=== PATIENT | male | born 1950 | race Caucasian/White ===

== ENCOUNTER 2018-07-31 14:21 | Outpatient (CLI) | payer MEDICARE ==
[~2018-07-31] VITALS: Ht 175.3 cm; Wt 84.8 kg
[2018-07-31 14:31] VITALS: BP 123/75
[2018-07-31 15:22] LABS: CLARITY,URINE CLEAR; COLOR,URINE YELLOW; GLUCOSE, URINE (UA) NEGATIVE (NEGATIVE); KETONES,URINE 1+ (NEGATIVE); LEUKOCYTE ESTERASE ,URINE 1+ (NEGATIVE); NITRITE,URINE NEGATIVE (NEGATIVE); PH,URINE 5 (5-9); PROTEIN,URINE 2+ (NEGATIVE); UROBILINOGEN,URINE 1 MG/DL (NORMAL)
[2018-07-31 15:34] LABS: BACTERIA,URINE TRACE /HPF; HYALINE CASTS, URINE >50 /LPF
[2018-07-31 15:40] LABS: BILIRUBIN,URINE 1+ (NEGATIVE)
[2018-07-31 15:45] LABS: CREATININE SERUM 1.64 MG/DL (0.60-1.30); POTASSIUM 4.1 MMOL/L (3.6-5.0)
[2018-07-31 15:46] LABS: CALCIUM 9.6 MG/DL (8.5-10.1)
[2018-08-01] MEDS ORDERED: PANT40TA3 PO (09:23)
[2018-08-01] MEDS ORDERED: DICY20TA10 PO (09:23)
[2018-08-01] MEDS ORDERED: DIGO250T PO (09:23)
[2018-08-01] MEDS ORDERED: FENO145T37 PO (09:23)
[2018-08-01] MEDS ORDERED: SEMA1PEN SQ (09:23)
[2018-08-01] MEDS ORDERED: ATOR80TA76 PO (09:23)
[2018-08-01] MEDS ORDERED: RAMI10CA69 PO (09:23)
[2018-08-01] MEDS ORDERED: GLIP5TAB13 PO (09:23)
[2018-08-01] MEDS ORDERED: METF500T8 PO (09:23)
[2018-08-01] MEDS ORDERED: DONE10TA12 PO (09:23)
[2018-08-01] MEDS ORDERED: CLOP75TA28 PO (09:23)
[2018-08-01] MEDS ORDERED: SERT100T8 PO (09:23)
[2018-08-01] MEDS ORDERED: FURO40TA4 PO (09:23)
[2018-08-01] MEDS ORDERED: SPIR25TA5 PO (09:23)
[2018-08-01] MEDS ORDERED: CARV12.53 PO (09:23)
--- NOTE | 2018-08-01 09:56 | Physician Query-Final Dx ---
DORETHA CARLSON 08/01/18 0956: Clinic Account Progress/Dx Physician Query: Please give a diagnosis for the screening PSA test thank you Date of Service Jul 31, 2018 at 14:21 JOSIE TURCIOS MD 08/02/18 1454: Clinic Account Progress/Dx Physician Query: Please give diagnosis DIAGNOSIS: Diagnosis BPH DORETHA CARLSON Aug 01, 2018 09:56 JOSIE TURCIOS MD Aug 02, 2018 14:54
[2018-08-01] MEDS ORDERED: CARV25TA PO (12:17)
== END 2018-07-31 15:10 | disposition home or self-care (01) ==
LOC: PREOP 14:21
PROVIDERS: ATTEND Urology
DX: Z01.812 Encounter for preprocedural laboratory examination (principal); Z11.2 Encounter for screening for other bacterial diseases; N41.9 Inflammatory disease of prostate, unspecified; R31.9 Hematuria, unspecified; N40.0 Benign prostatic hyperplasia without lower urinary tract symptoms
CPT/HCPCS: 36415; 80048; 81000; 84153; 84403; 87081; 87088; 88112

== ENCOUNTER 2018-08-07 06:17 | Day surgery (SDC) | payer MEDICARE ==
[~2018-08-07] VITALS: Ht 175.3 cm; Wt 80.9 kg
[~2018-08-07 06:17] MED LIST: ATOR80TA76 PO; CARV12.53 PO; CARV25TA PO; CLOP75TA28 PO; DICY20TA10 PO; DIGO250T PO; DONE10TA12 PO; FENO145T37 PO; FURO40TA4 PO; GLIP5TAB13 PO; METF500T8 PO; PANT40TA3 PO; RAMI10CA69 PO; SEMA1PEN SQ; SERT100T8 PO; SPIR25TA5 PO
[2018-08-07] MEDS ORDERED: LACTATED RINGERS 1,000 ML IV PRN (06:20)
[2018-08-07] MEDS ORDERED: cefTRIAXone FOR IV USE 1,000 MG in WATER (STERILE) FOR INJECTION 10 ML IV ONE (06:30)
[2018-08-07 06:58] VITALS: BP 118/76
[2018-08-07] MEDS ORDERED: proPOfol 200 MG/20 ML (DIPRIVAN) VIAL IV ONE (06:59)
[2018-08-07] MEDS ORDERED: MIDAZOLAM 2 MG/2 ML (VERSED) VIAL ONE (06:59)
[2018-08-07] MEDS ORDERED: SEVOFLURANE (ULTANE) 15 ML INHAL SOLN ONE (06:59)
[2018-08-07] MEDS ORDERED: LIDOCAINE PF 2% 5 ML (XYLOCAINE) VIAL ONE (06:59)
[2018-08-07] MEDS ORDERED: fentaNYL INJECTION 100 MCG/2 ML AMP ONE (07:00)
[2018-08-07] MEDS ORDERED: FAMOTIDINE 20MG/2ML IV (PEPCID) IV ONE (07:00)
[2018-08-07] MEDS ORDERED: FAMOTIDINE 20MG/2ML IV (PEPCID) ONE (07:07)
--- NOTE | 2018-08-07 07:07 | Progress Note-Post Operative ---
Post-Operative Progess Note Surgeon (s)/Improvement Spec (s) Surgeon JOSIE TURCIOS MD Improvement Spec: NONE Pre-Operative Diagnosis HEMATURIA AND PROSTATITIS Post-Operative Diagnosis SAME Procedure & Operative Findings Date of Procedure 08/07/18 Procedure Performed/Findings CYSTOSCOPY Anesthesia Type LOCAL Estimated Blood Loss Estimated blood loss (mL): NONE Specimens/Packing Specimens Removed NONE Packing: NONE JOSIE TURCIOS MD Aug 07, 2018 07:07
--- NOTE | 2018-08-07 07:07 | Progress Note-Pre Operative ---
Pre-Operative Progress Note H&P Reviewed The H&P was reviewed, patient examined and no changes noted. Date Seen by Provider: Aug 07, 2018 Time Seen by Provider: 07:06 Date H&P Reviewed: Aug 07, 2018 Time H&P Reviewed: 07:06 Pre-Operative Diagnosis: HEMATURIA AND PROSTATITIS JOSIE TURCIOS MD Aug 07, 2018 07:07
[2018-08-07] MEDS ORDERED: WATER (STERILE) FOR INJECTION 10 ML ONE (07:08)
[2018-08-07] MEDS ORDERED: cefTRIAXone 1,000 MG IV (ROCEPHIN) VIAL ONE (07:08)
[2018-08-07] MEDS ORDERED: LIDOCAINE UROJET 2% GEL 10 ML PKG ONE (07:08)
--- NOTE | 2018-08-07 07:09 | Discharge Inst-Urology ---
Discharge Inst-Urology Discharge Medications New, Converted, or Re-newed RX: RX on Chart Patient Instructions/Follow Up Plan Please make appointment to been seen in office in 2 weeks. Increase oral fluids for 48 hours and then as needed. Diet and Activity as tolerated. If questions or concerns contact your physician Or seek help at emergency department. JOSIE TURCIOS MD Aug 07, 2018 07:09
[2018-08-07] MEDS ORDERED: PHEN-640 PO (07:22)
[2018-08-07] MEDS ORDERED: NITR-65 PO (07:22)
--- NOTE | 2018-08-07 08:00 | OPERATIVE REPORT ---
DATE OF SERVICE: 08/07/2018 PREOPERATIVE DIAGNOSES: 1. Hematuria. 2. History of prostatitis. POSTOPERATIVE DIAGNOSES: 1. Hematuria. 2. History of prostatitis. OPERATION PERFORMED: Cystoscopy. SURGEON: Carlos Turcios MD ANESTHESIA: General and local. COMPLICATIONS: None. DESCRIPTION OF PROCEDURE: Under satisfactory general anesthesia, the patient in supine position, genitalia were prepped and draped in the usual sterile fashion. Urethra was infiltrated with 2% lidocaine jelly and a penile clamp was applied, this was then removed. The flexible cystoscope was introduced under vision. The anterior urethra was normal. The prostate was nonobstructing. Bladder neck was open. Bladder revealed 2 to 3+ trabeculations. No cystitis, carcinoma in situ or bladder tumor. No foreign body or stones. Ureteric orifices normal in shape, size and configuration with clear efflux. The cystoscopy was confirmed in antegrade fashion and the cystoscope was removed. The patient tolerated the procedure and anesthesia well and was sent to recovery room in stable condition. PLAN: We will see him back in 2 weeks. We will check his rectal exam. 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 This was fully explained to the patient preoperatively and to the postoperatively. Job ID: [id number] DocumentID: [id number] Dictated Date: 08/07/2018 07:38:23 Medical Staff Services Coordinator Date: 08/07/2018 07:59:22 Dictated By: CARLOS TURCIOS MD
[2018-08-07 08:30] VITALS: BP 148/87
[2018-08-07 09:00] VITALS: BP 143/89
[2018-08-07 09:30] VITALS: BP 130/86
--- NOTE | 2018-08-07 14:33 | Anesthesia-General Post-Op ---
General Patient Condition Mental Status/LOC: Same as Preop Cardiovascular: Satisfactory Nausea/Vomiting: Absent Respiratory: Satisfactory Pain: Controlled Complications: Absent Post Op Complications Complications None Follow Up Care/Instructions Patient Instructions None needed. Anesthesia/Patient Condition Patient Condition Patient was seen after the procedure and he was doing well, no complaints, stable vital signs, no apparent adverse anesthesia problems. HATTIE OLIVER DO Aug 07, 2018 14:33
== END 2018-08-07 09:32 | disposition home or self-care (01) ==
LOC: SDC 06:17
PROVIDERS: ATTEND Urology
DX: R31.0 Gross hematuria (principal); Z87.448 Personal history of other diseases of urinary system; K21.9 Gastro-esophageal reflux disease without esophagitis; F32.9 Major depressive disorder, single episode, unspecified; N40.0 Benign prostatic hyperplasia without lower urinary tract symptoms; I25.10 Atherosclerotic heart disease of native coronary artery without angina pectoris; E11.9 Type 2 diabetes mellitus without complications; N18.9 Chronic kidney disease, unspecified; C34.92 Malignant neoplasm of unspecified part of left bronchus or lung; I12.9 Hypertensive chronic kidney disease with stage 1 through stage 4 chronic kidney disease, or unspecified chronic kidney disease; J44.9 Chronic obstructive pulmonary disease, unspecified; Z79.899 Other long term (current) drug therapy; Z79.84 Long term (current) use of oral hypoglycemic drugs; Z95.5 Presence of coronary angioplasty implant and graft; Z95.810 Presence of automatic (implantable) cardiac defibrillator
CPT/HCPCS: 82962

== ENCOUNTER → 2018-12-13 | Outpatient (CLI) | payer MEDICARE ==
[~2018-12-13] MED LIST changes: +NITR-65 PO; +PHEN-640 PO
== END ==
LOC: CARD 09:53
PROVIDERS: ATTEND Internal Medicine Interventional Cardiology
DX: I50.22 Chronic systolic (congestive) heart failure (principal); I25.10 Atherosclerotic heart disease of native coronary artery without angina pectoris; Z95.810 Presence of automatic (implantable) cardiac defibrillator
CPT/HCPCS: 93306

== ENCOUNTER 2018-12-26 07:17 | Day surgery (SDC) | payer MEDICARE ==
[2018-12-26] VITALS (11 sets, daily range): BP systolic 155–192; BP diastolic 92–113
[~2018-12-26] VITALS: Ht 175.3 cm; Wt 80.9 kg
[~2018-12-26 07:17] MED LIST changes: +ALLO300T2 PO; +AMLO5TAB9 PO; +ASPI-999 PO; +INSU100I23 SQ
--- OUTSIDE RECORDS SUMMARY | 2018-12-26 07:21 | XMS REPORT | Continuity of Care Document ---
Author Organization Unknown Address Unknown Allergies Active Description Code Type Severity Reaction Onset Reported/Identified Relationship to Patient Clinical Status Yes acetaminophen [id number] Drug Allergy Unknown N/A 12/25/2018 Yes hydromorphone [id number] Drug Allergy Unknown N/A 12/25/2018 Yes morphine [id number] Drug Allergy Unknown N/A 12/25/2018 Yes propoxyphene [id number] Drug Allergy Unknown N/A 12/25/2018 Yes Sulfa (Sulfonamide Antibiotics) [id number] Drug Allergy Unknown N/A 12/25/2018 Medications There is no data. Problems Date Dx Coded Attending Type Code Diagnosis Diagnosed By 07/31/2018 JOSIE TURCIOS MD Ot N40.0 BENIGN PROSTATIC HYPERPLASIA WITHOUT LOW 07/31/2018 JOSIE TURCIOS MD Ot N41.9 INFLAMMATORY DISEASE OF PROSTATE, UNSPEC 07/31/2018 JOSIE TURCIOS MD Ot R31.9 HEMATURIA, UNSPECIFIED 07/31/2018 JOSIE TURCOIS MD Ot Z01.812 ENCOUNTER FOR PREPROCEDURAL LABORATORY E 07/31/2018 JOSIE TURCIOS MD Ot Z11.2 ENCOUNTER FOR SCREENING FOR OTHER BACTER 07/31/2018 JOSIE TURCIOS MD Ot N40.0 BENIGN PROSTATIC HYPERPLASIA WITHOUT LOW 07/31/2018 JOSIE TURCIOS MD Ot N40.0 BENIGN PROSTATIC HYPERPLASIA WITHOUT LOW 08/05/2018 JOSIE TURCIOS MD Ot N40.0 BENIGN PROSTATIC HYPERPLASIA WITHOUT LOW 08/05/2018 JOSIE TURCIOS MD Ot N41.9 INFLAMMATORY DISEASE OF PROSTATE, UNSPEC 08/05/2018 JOSIE TURCIOS MD Ot R31.9 HEMATURIA, UNSPECIFIED 08/05/2018 JOSIE TURCIOS MD Ot Z01.812 ENCOUNTER FOR PREPROCEDURAL LABORATORY E 08/05/2018 JOSIE TURCIOS MD Ot Z11.2 ENCOUNTER FOR SCREENING FOR OTHER BACTER 08/07/2018 JOSIE TURCIOS MD, Ot C34.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 08/07/2018 JOSIE TURCIOS MD, Ot E11.9 TYPE 2 DIABETES MELLITUS WITHOUT COMPLIC 08/07/2018 JOSIE TURCIOS MD, Ot F32.9 MAJOR DEPRESSIVE DISORDER, SINGLE EPISOD 08/07/2018 JOSIE TURCIOS MD, Ot I12.9 HYPERTENSIVE CHRONIC KIDNEY DISEASE W ST 08/07/2018 JOSIE TURCIOS MD, Ot I25.10 ATHSCL HEART DISEASE OF [place] CORONARY 08/07/2018 JOSIE TURCIOS MD, Ot J44.9 CHRONIC OBSTRUCTIVE PULMONARY DISEASE, U 08/07/2018 JOSIE TURCIOS MD, Ot K21.9 GASTRO-ESOPHAGEAL REFLUX DISEASE WITHOUT 08/07/2018 JOSIE TURCIOS MD, Ot N18.9 CHRONIC KIDNEY DISEASE, UNSPECIFIED 08/07/2018 JOSIE TURCIOS MD, Ot N40.0 BENIGN PROSTATIC HYPERPLASIA WITHOUT LOW 08/07/2018 JOSIE TURCIOS MD, Ot R31.0 GROSS HEMATURIA 08/07/2018 JOSIE TURCIOS MD, Ot Z79.84 ASSOCIATE [employer]LYT[employer] (CURRENT) USE OF ORAL HYPOGLYC 08/07/2018 JOSIE TURCIOS MD, Ot Z79.899 OTHER ASSOCIATE [employer]NALYT[employer] (CURRENT) DRUG THERAPY 08/07/2018 JOSIE TURCIOS MD, Ot Z87.448 PERSONAL HISTORY OF OTHER DISEASES OF UR 08/07/2018 JOSIE TURCIOS MD, Ot Z95.5 PRESENCE OF CORONARY ANGIOPLASTY IMPLANT 08/07/2018 JOSIE TURCIOS MD, Ot Z95.810 PRESENCE OF AUTOMATIC (IMPLANTABLE) CARD 08/08/2018 JOSIE TURCIOS MD, Ot C34.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 08/08/2018 JOSIE TURCIOS MD, Ot E11.9 TYPE 2 DIABETES MELLITUS WITHOUT COMPLIC 08/08/2018 JOSIE TURCIOS MD, Ot F32.9 MAJOR DEPRESSIVE DISORDER, SINGLE EPISOD 08/08/2018 JOSIE TURCIOS MD, Ot I12.9 HYPERTENSIVE CHRONIC KIDNEY DISEASE W ST 08/08/2018 JOSIE TURCIOS MD, Ot I25.10 ATHSCL HEART DISEASE OF [place] CORONARY 08/08/2018 JOSIE TURCIOS MD, Ot J44.9 CHRONIC OBSTRUCTIVE PULMONARY DISEASE, U 08/08/2018 JOSIE TURCIOS MD, Ot K21.9 GASTRO-ESOPHAGEAL REFLUX DISEASE WITHOUT 08/08/2018 JOSIE TURCIOS MD, Ot N18.9 CHRONIC KIDNEY DISEASE, UNSPECIFIED 08/08/2018 JOSIE TURCIOS MD, Ot N40.0 BENIGN PROSTATIC HYPERPLASIA WITHOUT LOW 08/08/2018 JOSIE TURCIOS MD, Ot R31.0 GROSS HEMATURIA 08/08/2018 JOSIE TURCIOS MD, Ot Z79.84 FDC (CURRENT) USE OF ORAL HYPOGLYC 08/08/2018 JOSIE TURCIOS MD, Ot Z79.899 OTHER FDC (CURRENT) DRUG THERAPY 08/08/2018 JOSIE TURCIOS MD, Ot Z87.448 PERSONAL HISTORY OF OTHER DISEASES OF UR 08/08/2018 JOSIE TURCIOS MD, Ot Z95.5 PRESENCE OF CORONARY ANGIOPLASTY IMPLANT 08/08/2018 JOSIE TURCIOS MD, Ot Z95.810 PRESENCE OF AUTOMATIC (IMPLANTABLE) CARD 12/18/2018 Kailash TINSLEY MD Ot I25.10 ATHSCL HEART DISEASE OF [place] CORONARY 12/18/2018 Kailash TINSLEY MD Ot I50.22 CHRONIC SYSTOLIC (CONGESTIVE) HEART FAIL 12/18/2018 Kailash TINSLEY MD Ot Z95.810 PRESENCE OF AUTOMATIC (IMPLANTABLE) CARD 12/18/2018 Kailash TINSLEY MD Ot I25.10 ATHSCL HEART DISEASE OF [place] CORONARY 12/18/2018 Kailash TINSLEY MD Ot I50.22 CHRONIC SYSTOLIC (CONGESTIVE) HEART FAIL 12/18/2018 Kailash TINSLEY MD Ot Z95.810 PRESENCE OF AUTOMATIC (IMPLANTABLE) CARD 12/25/2018 KATHIE BRODY MD Ot Z01.818 ENCOUNTER FOR OTHER PREPROCEDURAL EXAMIN 12/26/2018 KATHIE BRODY MD Ot Z01.818 ENCOUNTER FOR OTHER PREPROCEDURAL EXAMIN Procedures There is no data. Results Test Result Range Complete urinalysis with reflex to culture - 07/31/18 15:00 Urine color determination YELLOW NRG Urine clarity determination CLEAR NRG Urine pH measurement by test strip 5 5-9 Specific gravity of urine by test strip 1.025 1.016-1.022 Urine protein assay by test strip, semi-quantitative 2+ NEGATIVE Urine glucose detection by automated test strip NEGATIVE NEGATIVE Erythrocytes detection in urine sediment by light microscopy NEGATIVE NEGATIVE Urine ketones detection by automated test strip 1+ NEGATIVE Urine nitrite detection by test strip NEGATIVE NEGATIVE Urine total bilirubin detection by test strip 1+ NEGATIVE Urine urobilinogen measurement by automated test strip (mass/volume) 1 mg/dL NORMAL Urine leukocyte esterase detection by dipstick 1+ NEGATIVE Automated urine sediment erythrocyte count by microscopy (number/high power field) [HPF] NRG Automated urine sediment leukocyte count by microscopy (number/high power field) [HPF] NRG Bacteria detection in urine sediment by light microscopy TRACE NRG Crystals detection in urine sediment by light microscopy NONE NRG Casts detection in urine sediment by light microscopy PRESENT NRG Mucus detection in urine sediment by light microscopy NEGATIVE NRG Complete urinalysis with reflex to culture YES NRG Hyaline casts detection in urine sediment by light microscopy >50 NRG Whole blood basic metabolic panel - 07/31/18 15:00 Serum or plasma sodium measurement (moles/volume) 142 mmol/L 135-145 Serum or plasma potassium measurement (moles/volume) 4.1 mmol/L 3.6-5.0 Serum or plasma chloride measurement (moles/volume) 108 mmol/L 98-107 Carbon dioxide 23 mmol/L 21-32 Serum or plasma anion gap determination (moles/volume) 11 mmol/L 5-14 Serum or plasma urea nitrogen measurement (mass/volume) 29 mg/dL 7-18 Serum or plasma creatinine measurement (mass/volume) 1.64 mg/dL 0.60-1.30 Serum or plasma urea nitrogen/creatinine mass ratio 18 NRG Serum or plasma creatinine measurement with calculation of estimated glomerular filtration rate 42 NRG Serum or plasma glucose measurement (mass/volume) 192 mg/dL 70-105 Serum or plasma calcium measurement (mass/volume) 9.6 mg/dL 8.5-10.1 Bacterial urine culture - 07/31/18 15:00 Bacterial urine culture NG NRG Serum or plasma testosterone measurement (mass/volume) - 07/31/18 15:00 Testosterone [mass or moles/volume] in serum or plasma 224.62 % 220.91-715.81 Semen free prostate specific antigen (PSA) measurement (units/volume) - 07/31/18 15:00 Prostate specific ag [mass/volume] in serum or plasma 0.88 % 0.00-4.00 Methicillin resistant Staphylococcus aureus (MRSA) screening culture - 07/31/18 15:00 Methicillin resistant Staphylococcus aureus (MRSA) screening culture NEG NRG Capillary blood glucose measurement by glucometer (mass/volume) - 08/07/18 06:30 Capillary blood glucose measurement by glucometer (mass/volume) 167 mg/dL 70-110 Encounters ACCT No. Visit Date/Time Discharge Status Pt. Type Provider Facility Loc./Unit Complaint [id number] 12/25/2018 10:03:00 12/25/2018 10:39:00 DIS Outpatient KATHIE BRODY MD [facility] PREOP COLONOSCOPY [id number] 12/13/2018 09:53:00 12/13/2018 23:59:59 CLS Outpatient Kailash TINSLEY MD [facility] CARD ICD,CAD,CHF [id number] 10/16/2018 11:35:00 10/16/2018 23:59:59 CLS Preadmit Kailash TINSLEY MD [facility] CARD ICD,CAD,CHRONIC SYSTOLIC CHF [id number] 08/07/2018 06:17:00 08/07/2018 09:32:00 DIS Outpatient JOSIE TURCIOS MD [facility] SDC HEMATURIA [id number] 07/31/2018 14:21:00 07/31/2018 15:10:00 DIS Outpatient JOSIE TURCIOS MD [facility] PREOP HEMATURIA [id number] 12/26/2018 09:15:00 PEN Preadmit KATHIE BRODY MD [facility] ENDO RECTAL BLEEDING
[2018-12-26] MEDS ORDERED: NS IV 500 ML 500 ML ONE (07:31)
[2018-12-26] MEDS ORDERED: NS IV 500 ML 500 ML IV PRN (07:48)
[2018-12-26] MEDS ORDERED: MIDAZOLAM 2 MG/2 ML (VERSED) VIAL IVP ONE (08:00)
[2018-12-26] MEDS ORDERED: fentaNYL INJECTION 100 MCG/2 ML AMP IVP ONE (08:00)
--- NOTE | 2018-12-26 08:02 | Progress Note-Pre Operative ---
Pre-Operative Progress Note H&P Reviewed The H&P was reviewed, patient examined and no changes noted. Date Seen by Provider: Dec 26, 2018 Time Seen by Provider: 08:01 Date H&P Reviewed: Dec 26, 2018 Time H&P Reviewed: 08:01 Pre-Operative Diagnosis: rectal thickening KATHIE BRODY MD Dec 26, 2018 08:02
[2018-12-26] MEDS ORDERED: fentaNYL INJECTION 100 MCG/2 ML AMP ONE (08:15)
[2018-12-26] MEDS ORDERED: MIDAZOLAM 2 MG/2 ML (VERSED) VIAL ONE ×2 (08:16)
--- NOTE | 2018-12-26 08:37 | Endoscopy Procedure Report ---
Colonoscopy Procedure Performed: Colonoscopy Pre-Operative Diagnosis: brbpr Post-Operative Diagnosis: no findings Tin Assorter: None. Indications for Procedure: brbor Procedure Details: Informed consent was obtained, the risks, benefits and alternatives to the procedure were explained to the patient. The Doyle Romo, a 68 yr old male, was brought to to surgery area, sedated with 4 mg of Versed and 100 ug of fetnanyl. He was placed in the left lateral decubitus position. Under direct visualization the scope was passed into the remainder of his colon.depsite insufflation with air mucose was difficult to visualize and only able to look forward wit no distinct mass or lesion to biopsy Findings: Ascending Colon: n/a Transverse Colon: n/a Descending/Sigmoid: n/a Rectum: as above Estimated Blood Loss: 0mL Specimens: none Complications: None; patient tolerated the procedure well. Final Diagnosis: no discrete findings reviewed with his and if symptoms persist will schedule ct pelvis for further eval and may consider limited BE KATHIE BRODY MD Dec 26, 2018 08:37
== END 2018-12-26 09:30 | disposition home or self-care (01) ==
LOC: ENDO 07:17
PROVIDERS: ATTEND Pediatrics
DX: K62.5 Hemorrhage of anus and rectum (principal); I44.2 Atrioventricular block, complete; Z88.5 Allergy status to narcotic agent
CPT/HCPCS: 82962

== ENCOUNTER → 2019-03-03 | Outpatient (CLI) | payer MEDICARE ==
[2019-03-03 11:28] LABS: ABG BASE EXCESS -2.7 MMOL/L (-2.5-2.5); ABG OXYGEN SATURATION 99 % (94-100); ABG PCO2 30 MMHG (35-45); ABG PH 7.45 (7.37-7.43); ABG PO2 82 MMHG (79-93); ABG TCO2 22.5 MMOL/L (21.0-31.0)
[2019-03-03 11:29] LABS: ALLENS TEST YES-POS; INSPIRED O2 ROOM AIR; VENTILATOR NO
[2019-03-03 11:30] LABS: PATIENT TEMP 33.2
--- NOTE | 2019-03-03 11:36 | NUR ---
Patient remained on room air throughout study. SpO2 remained 95% or above on room air. Addendum: 03/03/19 at 1137 by RENEE MANZANARES RT Amended: Links added.
== END ==
LOC: PULM 10:44
PROVIDERS: ATTEND Nurse Practitioner Family
DX: C34.90 Malignant neoplasm of unspecified part of unspecified bronchus or lung (principal)
CPT/HCPCS: 36600; 82805; 94761

== ENCOUNTER → 2019-05-05 | Outpatient (CLI) | payer MEDICARE | LOC: LAB FS 14:24 | PROVIDERS: ATTEND Nurse Practitioner Family | DX: R06.89 Other abnormalities of breathing (principal) ==

== ENCOUNTER → 2019-05-08 | Outpatient (CLI) | payer MEDICARE ==
[~2019-05-08] MED LIST changes: +CATHETER FLUSH 10 ML SYR IV PRN; -DIGO250T PO; +DIGO250T3 PO; +HOLD METFORMIN - RECEIVED CONTRAST 20 ML VIAL IV SCH; +IOHEXOL 350 MG/ML 100 ML (OMNIPAQUE 350) VIAL IV ONE; +METF500T19 PO; -METF500T8 PO; +NS 100 ML (IVPB) BAG IV ONE
--- NOTE | 2019-05-08 09:08 | Diagnostic Imaging Report ---
PROCEDURE: CT chest with contrast only. TECHNIQUE: Multiple contiguous axial images were obtained through the chest after administration of intravenous contrast. Auto Exposure Controls were utilized during the CT exam to meet ALARA standards for radiation dose reduction. DATE: May 08, 2019. COMPARISON: None available. INDICATION: 68-year-old male, history of lung cancer. Shortness of breath and difficulty breathing. Status post right upper lobectomy. FINDINGS: The patient is status post right upper lobectomy. There are peripheral areas of reticular nodularity with foci of high attenuation in the right lower lobe on axial image 126 and adjacent sequential images. In this region, there is a 3 mm noncalcified right lower lobe pulmonary nodule. There are mild areas of linear opacification in the right lower lobe most likely relating to mild scarring. There is no additionally identified right-sided pulmonary nodule. There are calcified subcentimeter left lower lobe pulmonary nodules on axial image 129 measuring approximately 3 mm in size each. There is a 3 mm noncalcified left upper lobe pulmonary nodule on axial image 48. There is no additional focal airspace consolidation. There is no pneumothorax. There is no pleural effusion. The central airways are patent. There is nondiagnostic assessment for pulmonary embolus given the timing of the contrast bolus. The main pulmonary artery is normal in caliber. There are coronary artery calcifications and additional areas of atherosclerotic disease. The heart is not enlarged. There is no pericardial effusion. There is no identified mediastinal, hilar, or axillary lymph node which meets CT size criteria for adenopathy. The liver appears diffusely low in attenuation suggesting diffuse fatty infiltration of the liver. The outer liver contours are not grossly nodular. There is no identified focal liver lesion. There are several low-attenuation lesions in the pancreas with several example lesions visible on axial image 166. The most proximal lesion measures up to 10 mm in diameter. An additional example lesion is partially imaged in the tail of the pancreas and measures 15 mm in size which is the largest imaged low-attenuation lesion in the pancreas. The main pancreatic duct is normal in caliber. There is no biliary ductal dilation. There is a low-attenuation lesion in the left kidney measuring 13 mm in size with internal attenuation diagnostic for a benign left renal cyst on axial image 169. There is an incompletely imaged 4 mm left renal lesion on axial image 173 which is too small to characterize. There are degenerative changes of the spine. There are chronic-appearing right rib deformities. There is no identified acute bony abnormality. IMPRESSION: CT CHEST. 1. Status post right upper lobectomy. 2. Peripheral reticular nodular opacities in the right lower lobe of uncertain exact chronicity. These are most likely relating to infectious or inflammatory etiology and may be chronic. Comparison with prior imaging would be needed. 3. 3 mm left upper lobe and right lower lobe pulmonary nodules. Recommend comparison with prior imaging to assess for possible stability. If comparison imaging is not able to be obtained, followup CT chest in 6 months is recommended. 4. Multiple low-attenuation lesions within the pancreas with the largest lesion incompletely imaged measuring at least 15 mm in size. There is no associated main pancreatic ductal dilation. Primary differential diagnostic considerations would include multiple side branch type IPMNs and multiple pancreatic pseudocysts. Recommend comparison with prior imaging if available to assess for potential stability. Dictated by: Dictated on workstation # [id number]
== END ==
LOC: RAD FS 07:54
PROVIDERS: ATTEND Nurse Practitioner Family
DX: J98.4 Other disorders of lung (principal); K86.89 Other specified diseases of pancreas; J30.9 Allergic rhinitis, unspecified; Z90.2 Acquired absence of lung [part of]; Z85.118 Personal history of other malignant neoplasm of bronchus and lung
CPT/HCPCS: 71260

== ENCOUNTER → 2019-05-21 | Outpatient (CLI) | payer MEDICARE ==
[2019-05-05 17:14] LABS: CREATININE SERUM 1.2 MG/DL (0.60-1.30)
[~2019-05-21] MED LIST changes: -CATHETER FLUSH 10 ML SYR IV PRN; +DIGO250T PO; -DIGO250T3 PO; -HOLD METFORMIN - RECEIVED CONTRAST 20 ML VIAL IV SCH; -IOHEXOL 350 MG/ML 100 ML (OMNIPAQUE 350) VIAL IV ONE; -METF500T19 PO; +METF500T8 PO; -NS 100 ML (IVPB) BAG IV ONE; +RT-ALBUTEROL SULF 2.5 MG/3 ML PRE-MIX VIAL INH ONE; +RT-ALBUTEROL SULF 2.5 MG/3 ML PRE-MIX VIAL ONE
== END ==
LOC: RT 10:14
PROVIDERS: ATTEND Nurse Practitioner Family
DX: C34.90 Malignant neoplasm of unspecified part of unspecified bronchus or lung (principal); J30.9 Allergic rhinitis, unspecified
CPT/HCPCS: 36415; 82565; 84520; 94060; 94640; 94726; 94729

== ENCOUNTER → 2019-12-01 | Outpatient (CLI) | payer MEDICARE ==
[~2019-12-01] MED LIST changes: -DIGO250T PO; +DIGO250T3 PO; +FENO145T26 PO; -FENO145T37 PO; +METF-865 PO; -METF500T8 PO; -RT-ALBUTEROL SULF 2.5 MG/3 ML PRE-MIX VIAL INH ONE; -RT-ALBUTEROL SULF 2.5 MG/3 ML PRE-MIX VIAL ONE
== END ==
LOC: CARD 12:30
PROVIDERS: ATTEND Internal Medicine Interventional Cardiology
DX: G45.9 Transient cerebral ischemic attack, unspecified (principal); I25.10 Atherosclerotic heart disease of native coronary artery without angina pectoris; E78.5 Hyperlipidemia, unspecified; I12.9 Hypertensive chronic kidney disease with stage 1 through stage 4 chronic kidney disease, or unspecified chronic kidney disease; N18.9 Chronic kidney disease, unspecified; Z95.810 Presence of automatic (implantable) cardiac defibrillator; I34.0 Nonrheumatic mitral (valve) insufficiency
CPT/HCPCS: 93306

== ENCOUNTER → 2019-12-11 | Outpatient (CLI) | payer MEDICARE ==
[~2019-12-11] VITALS: Ht 175 cm; Wt 84.0 kg
[~2019-12-11] MED LIST changes: +CATHETER FLUSH 10 ML SYR IV PRN; +REGADENOSON 0.4 MG/5 ML SYR (LEXISCAN) IV ONE
[2019-12-11 15:08] VITALS: BP 153/93
--- NOTE | 2019-12-11 15:08 | Cardiology Stress Test Report ---
Stress Test Report Type of NM Stress Test: Test Type: LEXISCAN 0.4MG/5ML Date of Procedure/Referring: Date of Procedure: Dec 11, 2019 PCP Kailash Sumner MD Admitting Physician Wayne Jeffers MD Indications: CAD, CK D, chest heaviness Baseline Heart Rate: 77 Baseline Blood Pressure: Blood Pressure Systolic: 153 Blood Pressure Diastolic: 93 Baseline EKG: Baseline EKG: Sinus rhythm Summary & Conclusion: Summary: The patient was brought to the stress lab after informed consent was taken. Stress test was performed according to the Lexiscan protocol. 0.4 mg of IV Lexiscan was given. Low-grade exercise was performed. Baseline EKG showed sinus rhythm at 77 BPM and blood pressure 153/93 mmHg. Maximum heart rate of 96 bpm and blood pressure of 158/85 mmHg. Patient did not have any chest pain, arrhythmias or ST segment changes during the stress test. 10.41 mCi of Myoview were given for rest imaging and 29.8 mCi of Myoview given for stress imaging. Transient ischemic dilatation score 0.84, EF 60 percent. Normal wall motion. Mild size intermediate intensity apical reversible defect. Conclusion: Pharmacological stress test was negative for ischemia. Normal LV function with no wall motion abnormalities. Likely apical ischemia. Coronary angiography is recommended. Kailash SUMNER MD Dec 11, 2019 15:08
== END ==
LOC: CARD 07:48
PROVIDERS: ATTEND Internal Medicine Interventional Cardiology
DX: G45.9 Transient cerebral ischemic attack, unspecified (principal); I25.10 Atherosclerotic heart disease of native coronary artery without angina pectoris; E78.5 Hyperlipidemia, unspecified; I12.9 Hypertensive chronic kidney disease with stage 1 through stage 4 chronic kidney disease, or unspecified chronic kidney disease; N18.9 Chronic kidney disease, unspecified; Z95.810 Presence of automatic (implantable) cardiac defibrillator
CPT/HCPCS: 78452; 93017; A9502

== ENCOUNTER 2019-12-26 07:02 | Day surgery (SDC) | payer MEDICARE ==
[~2019-12-26] VITALS: Ht 175 cm; Wt 85.0 kg
[2019-12-26] VITALS (14 sets, daily range): BP systolic 142–179; BP diastolic 69–129
[~2019-12-26 07:02] MED LIST changes: -CATHETER FLUSH 10 ML SYR IV PRN; -REGADENOSON 0.4 MG/5 ML SYR (LEXISCAN) IV ONE
--- OUTSIDE RECORDS SUMMARY | 2019-12-26 07:06 | XMS REPORT | Continuity of Care Document ---
Author Organization Unknown Address Unknown Phone Unavailable Allergies Active Description Code Type Severity Reaction Onset Reported/Identified Relationship to Patient Clinical Status Yes acetaminophen [id number] Tc g Allergy Unknown N/A 12/25/2018 Yes hydromorphone [id number] Tc g Allergy Unknown N/A 12/25/2018 Yes morphine [id number] Drug Allergy Unknown N/A 12/25/2018 Yes propoxyphene [id number] Drug Allergy Unknown N/A 12/25/2018 Yes Sulfa (Sulfonamide Antibiotics) [id number] Drug Allergy Unknown N/A 019 Medications There is no data. Problems Date Dx Coded Attending Type Code Diagnosis Diagnosed By 07/31/2018 JOSIE TURCIOS MD Ot N40.0 BENIGN PROSTATIC HYPERPLASIA WITHOUT LOW 07/31/2018 JOSIE TURCIOS MD Ot N41.9 INFLAMMATORY DISEASE OF PROSTATE, UNSPEC 07/31/2018 JOSIE TURCIOS MD Ot R31.9 HEMATURIA, UNSPECIFIED 07/31/2018 JOSIE TURCIOS MD Ot Z01.8 12 ENCOUNTER FOR PREPROCEDURAL LABORATORY E 07/31/2018 JOSIE [...] HEMATURIA, UNSPECIFIED 08/05/2018 JOSIE TURCIOS MD Ot Z01.8 12 ENCOUNTER FOR PREPROCEDURAL LABORATORY E 08/05/2018 JOSIE TURCIOS MD Ot Z11.2 ENCOUNTER FOR SCREENING FOR OTHER BACTER 08/07/2018 JOSIE TURCIOS MD, Ot C34.9 2 MALIGNANT NEOPLASM OF UNSP PART OF LEFT 08/07/2018 JOSIE TURCIOS MD, Ot E11.9 TYPE 2 DIABETES MELLITUS WITHOUT COMPLIC 08/07/2018 JOSIE TURCIOS MD, Ot F32.9 MAJOR DEPRESSIVE DISORDER, SINGLE EPISOD 08/07/2018 JOSIE TURCIOS MD, Ot I12.9 HYPERTENSIVE CHRONIC KIDNEY DISEASE W ST 08/07/2018 JOSIE TURCIOS MD, Ot I25.1 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 08/07/2018 JOSIE TURCIOS MD, Ot J44.9 CHRONIC OBSTRUCTIVE PULMONARY DISEASE, U 08/07/2018 JOSIE TURCIOS MD, Ot K21.9 GASTRO-ESOPHAGEAL REFLUX DISEASE WITHOUT 08/07/2018 JOSIE TURCIOS MD, Ot N18.9 CHRONIC KIDNEY DISEASE, UNSPECIFIED 08/07/2018 JOSIE TURCIOS MD, Ot N40.0 BENIGN PROSTATIC HYPERPLASIA WITHOUT LOW 08/07/2018 JOSIE TURCIOS MD, Ot R31.0 GROSS HEMATURIA 08/07/2018 JOSIE TURCIOS MD, Ot Z79.8 4 HALFWAY (CURRENT) USE OF ORAL HYPOGLYC 08/07/2018 JOSIE TURCIOS MD, Ot Z79.8 99 OTHER IRRIGATION FOREMAN (CURRENT) DRUG THERAPY 08/07/2018 JOSIE TURCIOS MD, Ot Z87.4 48 PERSONAL HISTORY OF OTHER DISEASES OF UR 08/07/2018 JOSIE TURCIOS MD, Ot Z95.5 PRESENCE OF CORONARY ANGIOPLASTY IMPLANT 08/07/2018 JOSIE TURCIOS MD, Ot Z95.8 10 PRESENCE OF AUTOMATIC (IMPLANTABLE) CARD 08/08/2018 JOSIE TURCIOS MD, Ot C34.9 2 MALIGNANT NEOPLASM OF UNSP PART OF LEFT 08/08/2018 JOSIE TURCIOS MD, Ot E11.9 TYPE 2 DIABETES MELLITUS WITHOUT COMPLIC 08/08/2018 JOSIE TURCIOS MD, Ot F32.9 MAJOR DEPRESSIVE DISORDER, SINGLE EPISOD 08/08/2018 JOSIE TURCIOS MD, Ot I12.9 HYPERTENSIVE CHRONIC KIDNEY DISEASE W ST 08/08/2018 JOSIE TURCIOS MD, Ot I25.1 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 08/08/2018 JOSIE TURCIOS MD Ot J44.9 CHRONIC OBSTRUCTIVE PULMONARY DISEASE, U 08/08/2018 JOSIE TURCIOS MD, Ot K21.9 GASTRO-ESOPHAGEAL REFLUX DISEASE WITHOUT 08/08/2018 JOSIE TURCIOS MD, Ot N18.9 CHRONIC KIDNEY DISEASE, UNSPECIFIED 08/08/2018 JOSIE TURCIOS MD Ot N40.0 BENIGN PROSTATIC HYPERPLASIA WITHOUT LOW 08/08/2018 JOSIE TURCIOS MD, Ot R31.0 GROSS HEMATURIA 08/08/2018 JOSIE TURCIOS MD, Ot Z79.8 4 HALFWAY (CURRENT) USE OF ORAL HYPOGLYC 08/08/2018 JOSIE TURCIOS MD, Ot Z79.8 99 OTHER IRRIGATION FOREMAN (CURRENT) DRUG THERAPY 08/08/2018 JOSIE TURCIOS MD, Ot Z87.4 48 PERSONAL HISTORY OF OTHER DISEASES OF UR 08/08/2018 JOSIE TURCIOS MD Ot Z95.5 PRESENCE OF CORONARY ANGIOPLASTY IMPLANT 08/08/2018 JOSIE TURCIOS MD Ot Z95.8 10 PRESENCE OF AUTOMATIC (IMPLANTABLE) CARD 12/18/2018 Kailash TINSLEY MD Ot I25.1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 12/18/2018 Kailash TINSLEY MD Ot I50.22 CHRONIC SYSTOLIC (CONGESTIVE) HEART FAIL 12/18/2018 Kailash TINSLEY MD Ot Z95.810 PRESENCE OF AUTOMATIC (IMPLANTABLE) CARD 12/18/2018 Kailash TINSLEY MD Ot I25.1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 12/18/2018 Kailash TINSLEY MD Ot I50.22 CHRONIC SYSTOLIC (CONGESTIVE) HEART FAIL 12/18/2018 Kailash TINSLEY MD Ot Z95.810 PRESENCE OF AUTOMATIC (IMPLANTABLE) CARD 12/25/2018 KATHIE BRODY MD Ot Z01.818 ENCOUNTER FOR OTHER PREPROCEDURAL EXAMIN 12/26/2018 KATHIE BRODY MD Ot Z01.818 ENCOUNTER FOR OTHER PREPROCEDURAL EXAMIN 01/03/2019 Kailash TINSLEY MD Ot I25.1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 01/03/2019 Kailash TINSLEY MD Ot I50.22 CHRONIC SYSTOLIC (CONGESTIVE) HEART FAIL 01/03/2019 Kailash TINSLEY MD Ot Z95.810 PRESENCE OF AUTOMATIC (IMPLANTABLE) CARD 01/05/2019 KATHIE BRODY MD Ot I44.2 ATRIOVENTRICULAR BLOCK, COMPLETE 01/05/2019 KATHIE BRODY MD Ot K62.5 HEMORRHAGE OF ANUS AND RECTUM 01/05/2019 KATHIE BRODY MD Ot Z88.5 ALLERGY STATUS TO NARCOTIC AGENT STATUS 03/05/2019 MARLENI GARDNER APRN Ot C34.90 MALIGNANT NEOPLASM OF UNSP PART OF UNS 04/01/2019 MARLENI GARDNER APRN Ot C34.90 MALIGNANT NEOPLASM OF UNSP PART OF UNS 04/14/2019 JOSIE TURCIOS MD, Ot E11.2 2 TYPE 2 DIABETES MELLITUS W DIABETIC HYDRAULIC PLUMBER 04/14/2019 JOSIE TURCIOS MD, Ot F32.9 MAJOR DEPRESSIVE DISORDER, SINGLE EPISOD 04/14/2019 JOSIE TURCIOS MD, Ot I12.9 HYPERTENSIVE CHRONIC KIDNEY DISEASE W ST 04/14/2019 JOSIE TURCIOS MD, Ot I25.1 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 04/14/2019 JOSIE TURCIOS MD, Ot J44.9 CHRONIC OBSTRUCTIVE PULMONARY DISEASE, U 04/14/2019 JOSIE TURCIOS MD, Ot K21.9 GASTRO-ESOPHAGEAL REFLUX DISEASE WITHOUT 04/14/2019 JOSIE TURCIOS MD, Ot N18.9 CHRONIC KIDNEY DISEASE, UNSPECIFIED 04/14/2019 JOSIE TURCIOS MD, Ot N40.1 BENIGN PROSTATIC HYPERPLASIA WITH LOWER 04/14/2019 JOSIE TURCIOS MD, Ot R31.0 GROSS HEMATURIA 04/14/2019 JOSIE TURCIOS MD, Ot Z79.0 2 HALFWAY (CURRENT) USE OF ANTITHROMBOTI 04/14/2019 JOSIE TURCIOS MD, Ot Z79.8 2 HALFWAY (CURRENT) USE OF ASPIRIN 04/14/2019 JOSIE TURCIOS MD, Ot Z79.8 4 HALFWAY (CURRENT) USE OF ORAL HYPOGLYC 04/14/2019 JOSIE TURCIOS MD, Ot Z79.8 99 OTHER IRRIGATION FOREMAN (CURRENT) DRUG THERAPY 04/14/2019 JOSIE TURCIOS MD Ot Z85.1 18 PERSONAL HISTORY OF MALIGNANT NEOPLASM O 04/14/2019 JOSIE TURCIOS MD Ot Z87.4 48 PERSONAL HISTORY OF OTHER DISEASES OF UR 04/14/2019 JOSIE TURCIOS MD Ot Z95.5 PRESENCE OF CORONARY ANGIOPLASTY IMPLANT 04/14/2019 JOSIE TURCIOS MD Ot Z95.8 10 PRESENCE OF AUTOMATIC (IMPLANTABLE) CARD 05/07/2019 MARLENI GARDNER RN PROGRESSIVE CARE Ot R06.89 OTHER ABNORMALITIES OF BREATHING 05/13/2019 MARLENI GARDNER RN PROGRESSIVE CARE Ot J30.9 ALLERGIC RHINITIS, UNSPECIFIED 05/13/2019 MARLENI GARDNER RN PROGRESSIVE CARE Ot J98.4 OTHER DISORDERS OF LUNG 05/13/2019 MARLENI GARDNER RN PROGRESSIVE CARE Ot K86.89 OTHER SPECIFIED DISEASES OF PANCREAS 05/13/2019 MARLENI GARDNER RN PROGRESSIVE CARE Ot Z85.118 PERSONAL HISTORY OF MALIGNANT NEOPLASM O 05/13/2019 MARLENI GARDNER RN PROGRESSIVE CARE Ot Z90.2 ACQUIRED ABSENCE OF LUNG [PART OF] 05/26/2019 MARLENI GARDNER RN PROGRESSIVE CARE Ot C34.90 MALIGNANT NEOPLASM OF UNSP PART OF UNSP 05/26/2019 MARLENI GARDNER RN PROGRESSIVE CARE Ot J30.9 ALLERGIC RHINITIS, UNSPECIFIED 05/29/2019 MARLENI GARDNER RN PROGRESSIVE CARE Ot J30.9 ALLERGIC RHINITIS, UNSPECIFIED 05/29/2019 MARLENI GARDNER RN PROGRESSIVE CARE Ot J98.4 OTHER DISORDERS OF LUNG 05/29/2019 MARLENI GARDNER RN PROGRESSIVE CARE Ot K86.89 OTHER SPECIFIED DISEASES OF PANCREAS 05/29/2019 MARLENI GARDNER RN PROGRESSIVE CARE Ot Z85.118 PERSONAL HISTORY OF MALIGNANT NEOPLASM O 05/29/2019 MARLENI GARDNER RN PROGRESSIVE CARE Ot Z90.2 ACQUIRED ABSENCE OF LUNG [PART OF] 12/03/2019 LAUREANO RENAE, Kailash DONALD Ot E78 .5 HYPERLIPIDEMIA, UNSPECIFIED 12/03/2019 Kailash TINSLEY MD Ot G45 .9 TRANSIENT CEREBRAL ISCHEMIC ATTACK, UNSP 12/03/2019 Kailash TINSLEY MD Ot I12 .9 HYPERTENSIVE CHRONIC KIDNEY DISEASE W ST 12/03/2019 Kailash TINSLEY MD Ot I25.1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 12/03/2019 LAUREANO RENAE, Kailash DONALD Ot I34 .0 NONRHEUMATIC MITRAL (VALVE) INSUFFICIENC 12/03/2019 Kailash TINSLEY MD, Ot N18 .9 CHRONIC KIDNEY DISEASE, UNSPECIFIED 12/03/2019 LAUREANO RENAE, Kailash DONALD Ot Z95.810 PRESENCE OF AUTOMATIC (IMPLANTABLE) CARD 12/15/2019 Kailash TINSLEY MD, Ot E78 .5 HYPERLIPIDEMIA, UNSPECIFIED 12/15/2019 LAUREANO RENAE, Kailash DONALD Ot G45 .9 TRANSIENT CEREBRAL ISCHEMIC ATTACK, UNSP 12/15/2019 Kailash TINSLEY MD, Ot I12 .9 HYPERTENSIVE CHRONIC KIDNEY DISEASE W ST 12/15/2019 Kailash TINSLEY MD, Ot I25.1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 12/15/2019 Kailash TINSLEY MD, Ot N18 .9 CHRONIC KIDNEY DISEASE, UNSPECIFIED 12/15/2019 Kailash TINSLEY MD, Ot Z95.810 PRESENCE OF AUTOMATIC (IMPLANTABLE) CARD Procedures There is no data. Results Test Result Range Complete urinalysis with reflex to cultu re - 07/31/18 15:00 Urine color determination YELLOW NRG Urine clarity determination CLEAR NR G Urine pH measurement by test strip 5 5-9 Specific gravity of urine by test strip 1.025 1.016-1.022 Urine protein assay by test strip, semi-quantitative 2+ NEGATIVE Urine glucose detection by automated test strip NE GATIVE NEGATIVE Erythrocytes detection in urine sediment by light micr oscopy NEGATIVE NEGATIVE Urine ketones detection by automated test strip 1+ NEGATIVE Urine nitrite detection by test strip NEGATIVE NEGATIVE Urine total bilirubin detection by test strip 1+ NEGATIVE Urine urobilinogen measurement by automated test strip (mass/volume) 1 mg/dL NORMAL Urine leukocyte esterase detection by dipstick 1+ NEGATIVE Automated urine sediment erythrocyte cou nt by microscopy (number/high power field) [HPF] NRG Automated urine sediment leukocyte count by microscopy (number/high power field) [HPF] NRG Bacteria detection in urine sediment by light microsco py TRACE NRG Crystals detection in urine sediment by light microsco py NONE NRG Casts detection in urine sediment by light microscopy PRESENT NRG Mucus detection in urine sediment by light microscopy NEGATIVE NRG Complete urinalysis with reflex to culture YES NRG Hyaline casts detection in urine sediment by light lizz roscopy >50 NRG Whole blood basic metabolic panel - 07/06 12/20 15:00 Serum or plasma sodium measurement (moles/volume) 142 mmol/L 135-145 Serum or plasma potassium measurement (moles/volume) 4.1 mmol/L 3.6-5.0 Serum or plasma chloride measurement (moles/volume) 108 mmol/L 98-107 Carbon dioxide 23 mmol/L 21-32 Serum or plasma anion gap determination (moles/volume) 11 mmol/L 5-14 Serum or plasma urea nitrogen measurement (mass/volume ) 29 mg/dL 7-18 Serum or plasma creatinine measurement (mass/volume) 1.64 mg/dL 0.60-1.30 Serum or plasma urea nitrogen/creatinine mass ratio 18 NRG Serum or plasma creatinine measurement w ith calculation of estimated glomerular filtration rate 42 NRG Serum or plasma glucose measurement (mass/volume) 192 mg/dL 70-105 Serum or plasma calcium measurement (mass/volume) 9.6 mg/dL 8.5-10.1 Bacterial urine culture - 07/31/18 15:00 Bacterial urine culture NG NRG Serum or plasma testosterone measurement (mass/volume) - 07/31/18 15:00 Testosterone [mass or moles/volume] in serum or plasma 224.62 % 220.91-715.81 Semen free prostate specific antigen (PS A) measurement (units/volume) - 07/31/18 15:00 Prostate specific ag [mass/volume] in serum or plasma 0.88 % 0.00-4.00 Methicillin resistant Staphylococcus aur eus (MRSA) screening culture - 07/31/18 15:00 Methicillin resistant Staphylococcus aureus (MRSA) scr eening culture NEG NRG Capillary blood glucose measurement by g lucometer (mass/volume) - 08/07/18 06:30 Capillary blood glucose measurement by glucometer (mas s/volume) 167 mg/dL 70-110 Capillary blood glucose measurement by g lucometer (mass/volume) - 12/26/18 08:01 Capillary blood glucose measurement by glucometer (mas s/volume) 144 mg/dL 70-110 Arterial blood gas measurement - 9 11:15 Blood pCO2 30 mm[Hg] 35-45 Blood pO2 82 mm[Hg] 79-93 Arterial blood bicarbonate measurement (moles/volume) 21 mmol/L 23-27 Arterial blood base excess by calculation -2.7 mmo l/L -2.5-2.5 Arterial blood oxygen saturation measurement 99 % 94-100 * Inhaled oxygen flow rate ROOM AIR NRG Arterial blood pH measurement with patient temperature correction 7.45 7.37-7.43 Arterial blood carbon dioxide, total measurement (mole s/volume) 22.5 mmol/L 21.0-31.0 Body site LT RAD NRG Assessment of wrist artery patency prior to arterial p uncture YES-POS NRG Setting of ventilation mode NO NR G Measurement of body temperature 33.2 NRG [id number] - 05/05/19 14:39 Serum or plasma urea nitrogen measurement (mass/volume ) 19 mg/dL 7-18 Serum or plasma creatinine measurement (mass/volume) 1.20 mg/dL 0.60-1.30 Serum or plasma urea nitrogen/creatinine mass ratio 16 NRG Serum or plasma creatinine measurement w ith calculation of estimated glomerular filtration rate 60 NRG Encounters ACCT No. Visit Date/Time Discharge Status Pt. Type Provider Facility Loc./Unit Complaint [id number] 12/11/2019 07:48:00 23:59:59 CLS Outpatient Kailash TINSLEY MD [facility] CARD CAD,CKD,HYPERLIPIDEMIA,HYPERTENSION,CHEST HEAVINES [id number] 12/01/2019 12:30:00 23:59:59 CLS Outpatient Kailash TINSLEY MD [facility] CARD CAD,CKD,HYPERLIPIDEMIA,HYPERTENSION,CHEST HEAVINES [id number] 05/26/2019 15:23:00 23:59:59 CLS Preadmit MARLENI GARDNER APRN [facility] LAB ABNORMALITIES O F BREATHING,COUGH,LUNG CANCER [id number] 05/21/2019 10:14:00 23:59:59 CLS Outpatient MARLENI GARDNER APRN [facility] RT LUNG CANCER,DYSPNEA,COUGH,ALLERGIC RHINITIS [id number] 05/08/2019 07:54:00 23:59:59 CLS Outpatient MARLENI GARDNER RN PROGRESSIVE CARE [facility] RAD FS LUNG CANCER,DYSPNEA,COUGH,ALLERGIC RHINITIS [id number] 05/05/2019 14:24:00 23:59:59 CLS Outpatient MARLENI GARDNER RN PROGRESSIVE CARE [facility] LAB FS R06.89 [id number] 04/04/2019 14:50:00 23:59:59 CLS Preadmit MARLENI GARDNER RN PROGRESSIVE CARE [facility] RT ALLERGIC RHINITIS,COUGH,DYSPNEA,LUNG CANCER [id number] 03/03/2019 10:44:00 23:59:59 CLS Outpatient MARLENI GARDNER APRN [facility] PULM DYSPNEA [id number] 12/26/2018 07:17:00 09:30:00 DIS Outpatient KATHIE BRODY MD [facility] ENDO RECTAL BLEEDING [id number] 12/25/2018 10:03:00 10:39:00 DIS Outpatient KATHIE BRODY MD [facility] PREOP COLONOSCOPY [id number] 12/13/2018 09:53:00 23:59:59 CLS Outpatient Kailash TINSLEY MD [facility] CARD ICD,CAD,CHF [id number] 10/16/2018 11:35:00 23:59:59 CLS Preadmit Kailash TINSLEY MD [facility] CARD ICD,CAD,CHRONIC SYSTOLI C CHF [id number] 08/07/2018 06:17:00 09:32:00 DIS Outpatient JOSIE TURCIOS MD [facility] SDC HEMATURIA [id number] 07/31/2018 14:21:00 15:10:00 DIS Outpatient JOSIE TURCIOS MD [facility] PREOP HEMATURIA [id number] 12/25/2019 09:00:00 P EN Preadmit Kailash TINSLEY MD [facility] CATH CHEST HEAVINESS,ABNORMAL NUC LEAR STRESS TEST
[2019-12-26] MEDS ORDERED: NS IV 1000 ML 1,000 ML ONE (07:07)
[2019-12-26] MEDS ORDERED: LIDOCAINE 1% INJ 20 ML 20 ML VIAL ONE (07:07)
[2019-12-26] MEDS ORDERED: HEParin (CATH LAB) 2,000 ML IV ONE (07:07)
[2019-12-26] MEDS ORDERED: NS IV 1000 ML 1,000 ML IV SCH ×2 (07:15→10:38)
[2019-12-26 07:35] LABS: HEMOGLOBIN 13.7 G/DL (13.3-17.7); MEAN PLATELET VOLUME 8.7 FL (7.4-10.4); RED CELL DISTRIBUTION WIDTH 13.4 % (10.0-14.5); WHITE BLOOD COUNT 9.6 10^3/uL (4.3-11.0)
[2019-12-26 07:48] LABS: PROTHROMBIN TIME PATIENT 13.3 SEC (12.2-14.7)
[2019-12-26 07:57] LABS: ALANINE AMINOTRANSFERASE 37 U/L (0-55); ALBUMIN 4.1 GM/DL (3.2-4.5); ALKALINE PHOSPHATASE 73 U/L (40-136); BILIRUBIN,TOTAL 0.6 MG/DL (0.1-1.0); BUN/CREATININE RATIO 16; CALCIUM 9.6 MG/DL (8.5-10.1); CARBON DIOXIDE 22 MMOL/L (21-32); CHLORIDE 111 MMOL/L (98-107); CREATININE SERUM 1.26 MG/DL (0.60-1.30); GFR ESTIMATED 56; GLUCOSE 160 MG/DL (70-105); HDL CHOLESTEROL 47 MG/DL (40-60); POTASSIUM 3.9 MMOL/L (3.6-5.0); SODIUM 144 MMOL/L (135-145); TOTAL PROTEIN 7.4 GM/DL (6.4-8.2); TRIGLYCERIDES 307 MG/DL (<150); VLDL CHOLESTEROL 61 MG/DL (5-40)
[2019-12-26] MEDS ORDERED: fentaNYL INJECTION 100 MCG/2 ML AMP ONE (09:16)
[2019-12-26] MEDS ORDERED: MIDAZOLAM 5 MG/5 ML (VERSED) VIAL ONE (09:16)
[2019-12-26] MEDS ORDERED: ADENOSINE 3 MG/1 ML (ADENOSCAN) 30ML VIAL IV ONE (10:01)
[2019-12-26] MEDS ORDERED: HEParin 1000 UNIT/ML (10ML VIAL) FOR BOLUS ONE (10:01)
--- NOTE | 2019-12-26 10:25 | Cardiac Procedure Note-CS/ASA ---
Pre-Procedure Note Pre-Op Procedure Note H&P Reviewed The H&P was reviewed, patient examined and no changes noted. Date H&P Reviewed: Dec 26, 2019 Time H&P Reviewed: 09:00 Conscious Sedation Pre-Proced Time 09:00 ASA Score 3 For ASA 3 and 4: Consider anesthesia and medical clearance. Also, for patients with a history of failed moderate sedation consider anesthesia. Airway Lungs Heart ASA score ASA 1: a normal healthy patient ASA 2: a patient with a mild systemic disease (mid diabetes, controlled hypertension, obesity ASA 3: a patient with a severe systemic disease that limits activity (angina, COPD, prior Myocardial infarction) ASA 4: a patient with an incapacitating disease that is a constant threat to life (CHF, renal failure) ASA 5: a moribund patient not expected to survive 24 hrs. (ruptured aneurysm) ASA 6: a declared brain- patient whose organs are being harvested. For emergent operations, add the letter E after the classification Mallampati Classification Grade 1 Sedation Plan Analgesia, Amnesia, Plan communicated to team members, Discussed options with patient/fam, Discussed risks with patient/fam The patient is an appropriate candidate to undergo the planned procedure, sedation, and anesthesia. The patient immediately re-assessed prior to indication. Kailash TINSLEY MD Dec 26, 2019 10:25
--- NOTE | 2019-12-26 10:28 | Coronary Angiography Report ---
Coronary Angiography Report DATE OF PROCEDURE: 12/26/19 INDICATION: Chest heaviness, abnormal nuclear stress test, severe hypertension refractory to medical therapy. Mild renal insufficiency. PREOPERATIVE DIAGNOSIS: Chest heaviness, abnormal nuclear stress test, severe hypertension refractory to medical therapy. Mild renal insufficiency. POSTOPERATIVE DIAGNOSIS: Moderate CAD. Mild left renal artery stenosis. HISTORY: This is a 69-year-old gentleman with history of CAD and previous PCI. He presented to the office for chest heaviness. Nuclear stress test was abnormal. Also he has severe hypertension refractory to medical therapy with mild renal insufficiency. Therefore, the patient was scheduled for coronary angiography. PROCEDURES PERFORMED: 1.Coronary angiography. 2.Left heart catheterization. 3. Abdominal aortogram, nonselective bilateral renal angiogram, bilateral lower extremity runoff. Medical necessity: Severe hypertension refractory to medical therapy with mild renal insufficiency. Renal artery stenosis needs to be ruled out. Systolic blood pressure when we started the procedure was over 190 mmHg. 4. FFR to OM artery. COMPLICATIONS: None. SPECIMENS: None. ESTIMATED BLOOD LOSS: 10 mL ANESTHESIA: Conscious sedation ANTICOAGULATION: IV heparin CONTRAST: 101 mL. FLUOROSCOPY: 6.2 minutes. FLOUROSCOPY DOSE: 721 mgy. PROCEDURE DETAILS: The patient is a 69 male and was brought to the slabber after informed consent was taken. All the risks and complications were explained in detail; this included the risk of bleeding, vascular damage, stroke, VT and even . The patient was draped and prepped in the usual sterile fashion. Access was gained in the right femoral artery with a 5 [place] sheath. Coronary angiography, left heart catheterization and abdominal aortogram with bilateral lower extremity runoff was done with a JR4, JL4 and pigtail catheter. FINDINGS: 1.Left main: Short left main, almost separate ostia. 2.LAD: Patent stents in the proximal and midsegment. Mild in-stent restenosis. 3.Left circumflex artery: The left circumflex artery branches into 3; the first 2 are OM arteries and the third is the AV groove artery. The second OM artery has moderate disease. 4.RCA: Patent stents in the midsegment. Mild in-stent restenosis. Mild diffuse distal disease. 5.Left heart catheterization: LV pressure 165/7 mmHg. LVEDP 14 mmHg. Aortic pressure 161/95 mmHg. Preserved LV function with no wall motion abnormalities. No gradient across the aortic valve. 6. Abdominal aortogram, nonselective bilateral renal angiogram, lower extremity runoff: Mild diffuse disease in the abdominal aorta. Mild ostial disease of the left renal artery. Stenosis severity 10-20 percent. Patent right renal artery. Plaque noted in the distal abdominal aorta however no significant stenosis. Patent bilateral common iliac artery, external iliac artery, common femoral artery, proximal and mid segments of the bilateral SFAs. Mildly luminal irregularities noted. Recommendations: FFR to second OM is recommended. FFR details: We used the same JL4 diagnostic catheter. FFR wire. IV heparin for anticoagulation. The lesion in the second OM was crossed with the FFR wire. Baseline FFR was 1.00. Adenosine was started at 140 g per KG per minute for 2 minutes. Lowest FFR was 0.91 which is acceptable therefore PCI was deferred. The wire was taken out. Post-angiogram did not show any vascular complication. Patient tolerated procedure well and did not have any complication. Right femor al artery was closed with a minx device. CONCLUSIONS: 1. Patent stents in the LAD and RCA. Moderate OM 2 stenosis with acceptable FFR. 2. Mild left renal artery disease. Mild PAD. 3. Continue aggressive secondary prevention measures. Shelby Sumner MD, FACP, FACC, [facility] Interventional Cardiology Kailash SUMNER MD Dec 26, 2019 10:27
--- NOTE | 2019-12-26 10:40 | NUR ---
PT UP TO FLOOR VIA HOSPITAL BED TO CU9 POST CATH. PT ALERT AND ORIENTED. EDUCATED PT ON BEDREST REQUIREMENTS AND RESTRICTIONS, PT VERBALIZED UNDERSTANDING. PT ON ROOM AIR, VSS. 5FR SHEATH USED, SITE MYNXED. R GROIN SITE SOFT, DRESSING CLEAN, DRY AND INTACT.
--- NOTE | 2019-12-26 10:41 | Discharge Inst-Post CATH ---
Discharge Inst-CATH/EP Problems Reviewed?: Yes Final Diagnosis Moderate CAD. Post Cardiac Cath/EP D/C Inst Follow Up/Plan Dr. Sumner in 3-4 weeks. Start metformin in 2 days. <b>CARDIAC CATH/EP PROCEDURE DISCHARGE INSTRUCTIONS</b> ACTIVITY * Go Home directly and rest. * Limit activity of the leg (or wrist if it was used) for 7 days including aerobics, swimming, jogging, bicycling, etc. * Restrict stair-climbing for 7 days if possible, if not, climb up with your non-cath leg, then bring together on the same step. * Avoid lifting, pushing, pulling or excessive movement of the affected extremity for 7 days. * Customary sexual activity may be resumed after 2 days-use caution not to use a position that strains or causes pain to the affected extremity. * No driving for 24 hours. * NO SMOKING. * Avoid straining for bowel movements for 7 days. * Gentle walking on level ground is allowed. * Returning to work will depend on the type of procedure and the results. Your doctor will discuss this with you. CALL YOUR DOCTOR FOR ANY OF THE FOLLOWING: *If bleeding from the puncture site occurs- Apply gentle pressure to site with clean cloth and call your doctor or EMS. * If a knot or lump forms under the skin, increases in size, or causes pain. * If bruising appears to be worsening or moving further down your leg instead of disappearing. * Temperature above 101 F. CARE OF YOUR GROIN INCISION; * Bruising or purple discoloration of the skin near the puncture site is common. * You may shower only, no bathtub bathing for 5 days. Be careful to avoid slipping as your leg may feel stiff. * If a closure device was used on your femoral artery, please see the attached guide regarding care of the device and your leg. * Leave dressing on FOR 24 hours. CARE OF YOUR WRIST INCISION; * Bruising or purple discoloration of the skin near the puncture site is common. * You may shower. * DO NOT submerge wrist. * Leave dressing on FOR 24 hours. Kailash SUMNER MD Dec 26, 2019 10:41
[2019-12-26] MEDS ORDERED: PATIENT MAY USE OWN MEDS, ALL PO SCH (10:45)
--- NOTE | 2019-12-26 10:56 | Cardiology Discharge Summary ---
Diagnosis/Chief Complaint Date of Admission 12/26/2019 Date of Discharge 12/26/2019 Admission Diagnosis Chest heaviness, abnormal nuclear stress test, severe hypertension on medical t herapy. Final/Discharge Diagnosis Moderate CAD. Patent stents. Mild left renal artery stenosis. Chief Complaint/HPI Chief Complaint/HPI This is a 69-year-old gentleman with history of CAD/PCI. He also has a bi-V ICD. Presented with chest heaviness with abnormal nuclear stress test. Also has severe hypertension on medical therapy. Discharge Summary Procedures Patent stents in the LAD and RCA. Moderate OM 2 stenosis, FFR was 0.91. Therefore PCI was deferred. Mild left renal artery stenosis. Stenosis severity 10-20 percent. Mild diffuse PAD. Discharge Physical Examination Normal cardiovascular examination. Hospital Course Was the Problem List Reviewed?: Yes Unremarkable. Pending Labs Laboratory Tests 12/26/19 07:26: White Blood Count 9.6, Red Blood Count 4.49, Hemoglobin 13.7, Hematocrit 40, Mean Corpuscular Volume 89, Mean Corpuscular Hemoglobin 31, Mean Corpuscular Hemoglobin Concent 34, Red Cell Distribution Width 13.4, Platelet Count 180, Mean Platelet Volume 8.7, Prothrombin Time 13.3, INR Comment 1.0, Activated Partial Thromboplast Time 27, Sodium Level 144, Potassium Level 3.9, Chloride Level 111, Carbon Dioxide Level 22, Anion Gap 11, Blood Urea Nitrogen 20, Creatinine 1.26, Estimat Glomerular Filtration Rate 56, BUN/Creatinine Ratio 16, Glucose Level 160, Calcium Level 9.6, Corrected Calcium 9.5, Total Bilirubin 0. 6, Aspartate Amino Transf (AST/SGOT) 19, Alanine Aminotransferase (ALT/SGPT) 37, Alkaline Phosphatase 73, Total Protein 7.4, Albumin 4.1, Triglycerides Level 307, Total Cholesterol [Pending], Cholesterol Level , LDL Cholesterol Direct [Pending], VLDL Cholesterol 61, HDL Cholesterol 47 Discussion & Recommendations Discussion Discussed with the patient and family. Hold metformin for 2 days. Continue all outpatient medications. Follow up appt.: Follow-up in a month. Dicharge Diet: Cardiac Diet Activity as Tolerated: Yes Home Medications Reviewed patient Home Medication Reconciliation performed by pharmacy medication reconciliations biometric fingerprinting technician and/or nursing. Patients Allergies have been reviewed. Discharge Home Medications: Reviewed and agree with Discharge Medication list on patient's Discharge Instruction sheet Condition at discharge Stable. Instructions to patient/family Dr. Sumenr in 3-4 weeks. Start metformin in 2 days. Kailash SUMNER MD Dec 26, 2019 10:56
== END 2019-12-26 15:25 | disposition home or self-care (01) ==
LOC: CATH 07:02 → ICU 11:15 → CATH 15:25
PROVIDERS: ATTEND Internal Medicine Interventional Cardiology
DX: I25.10 Atherosclerotic heart disease of native coronary artery without angina pectoris (principal); I70.1 Atherosclerosis of renal artery; I13.0 Hypertensive heart and chronic kidney disease with heart failure and stage 1 through stage 4 chronic kidney disease, or unspecified chronic kidney disease; N18.9 Chronic kidney disease, unspecified; I50.22 Chronic systolic (congestive) heart failure; R94.39 Abnormal result of other cardiovascular function study; E11.22 Type 2 diabetes mellitus with diabetic chronic kidney disease; E78.5 Hyperlipidemia, unspecified; Z79.899 Other long term (current) drug therapy; Z79.82 Long term (current) use of aspirin; Z79.84 Long term (current) use of oral hypoglycemic drugs; Z88.2 Allergy status to sulfonamides; Z88.5 Allergy status to narcotic agent; Z88.8 Allergy status to other drugs, medicaments and biological substances; Z85.118 Personal history of other malignant neoplasm of bronchus and lung; Z87.891 Personal history of nicotine dependence; Z86.73 Personal history of transient ischemic attack (TIA), and cerebral infarction without residual deficits; Z80.9 Family history of malignant neoplasm, unspecified
CPT/HCPCS: 80053; 80061; 85027; 85610; 85730; 87081; 93458; 93571; C1760; C1769; C1894; G0278; 36415

== ENCOUNTER 2020-04-14 08:07 | Day surgery (SDC) | payer MEDICARE ==
[2020-04-14] VITALS (7 sets, daily range): BP systolic 142–168; BP diastolic 88–97
[~2020-04-14] VITALS: Ht 167 cm; Wt 100.0 kg
[~2020-04-14 08:07] MED LIST changes: +AMLO-250 PO; -AMLO5TAB9 PO; -PANT40TA3 PO; +PANT40TA52 PO
[2020-04-14] MEDS ORDERED: IOHEXOL 240 MGI/ML 50 ML (OMNIPAQUE) VIAL IV ONE (08:45)
[2020-04-14] MEDS ORDERED: CATHETER FLUSH 10 ML SYR IV PRN (08:45)
[2020-04-14] MEDS ORDERED: LIDOCAINE 1% INJ 20 ML 20 ML VIAL INJ ONE (08:45)
[2020-04-14 09:20] LABS: HEMOGLOBIN 7.5 g/dL (13.3-17.7); MEAN PLATELET VOLUME 10.1 fL (9.0-12.2); WHITE BLOOD COUNT 4.8 10^3/uL (4.3-11.0)
[2020-04-14 09:37] LABS: INR 0.9 (0.8-1.4); PROTHROMBIN TIME PATIENT 12.9 SEC (12.2-14.7)
[2020-04-14] MEDS ORDERED: ACETAMINOPHEN 500 MG TAB (TYLENOL) PO PRN (10:45)
--- NOTE | 2020-04-14 10:54 | Diagnostic Imaging Report ---
PROCEDURE: CT lumbar spine with contrast. TECHNIQUE: Multiple contiguous axial images were obtained through the lumbar spine after the intrathecal administration of contrast. Sagittal and coronal reformations were then performed. Auto Exposure Controls were utilized during the CT exam to meet ALARA standards for radiation dose reduction. INDICATION: Low back pain. No prior studies are available for comparison. Curvature and alignment of the lumbar spine is normal. Vertebral body heights are maintained. No acute compression fracture is detected. T12-L1: A right paramidline ununited osteophyte does indent the ventral thecal sac. This produces mild narrowing of the canal. There is lateral recess narrowing bilaterally, greater on the right as well as [id number] right neural foraminal narrowing. Left neural foramen is patent. L1-L2: Central canal appears to be patent. Broad-based disc bulging left posterolaterally does narrow the left neural foramen. Right neural foramen is patent. There is mild narrowing of the left lateral recess. L2-L3: Central canal is widely patent. There is narrowing of the left lateral recess due to broad-based disc/osteophyte complex. Asymmetric left posterolateral broad-based bulging also produces moderate narrowing of the left neural foramen. Only mild neural foraminal narrowing on the right is noted. L3-L4: Central canal is widely patent. There is asymmetric broad-based left posterolateral disc bulging narrowing the left lateral recess. There is significant narrowing of the left neural foramen. Only mild right neural foraminal narrowing is noted. There are hypertrophic facet degenerative changes. L4-L5: Broad-based disc/osteophyte complex flattens the ventral thecal sac. There is ligamentous thickening and facet changes. Severe narrowing of the lateral recesses bilaterally is noted. There is moderate narrowing of the central canal. There is also severe bilateral neural foraminal stenosis. L5-S1: Broad-based disc/osteophyte complex indents the ventral thecal sac. Central canal is patent but there is significant narrowing of the lateral recesses bilaterally. There appears to be significant bilateral neural foraminal stenosis. Paraspinous tissues are unremarkable. IMPRESSION: Multilevel lumbar spondylosis with multilevel central canal, lateral recess and neural foraminal stenosis described level by level above. Dictated by: Dictated on workstation # [id number]
--- NOTE | 2020-04-14 11:20 | Diagnostic Imaging Report ---
INDICATION: Low back pain. Patient was brought to the fluoroscopy suite placed on table in the prone position. Skin low back was prepped and draped in usual sterile fashion. A small amount of 1% lidocaine was utilized for local anesthesia. A 20-gauge spinal needle was advanced placed into the thecal sac at the L4 level. A 12 mm of Omnipaque 240 contrast was injected under fluoroscopic observation. Needle was removed and hemostasis was obtained. Multiple spot films of the lumbar spine are obtained multiple obliquities. Patient tolerated the procedure well and was sent for post myelography CT. Total of 49 seconds of fluoroscopic time was utilized. Images demonstrate contrast within the lumbar thecal sac. No obstruction to the contrast column is seen. There are anterior extradural defects at all levels of the lumbar spine likely owing to disc/osteophyte complex. This will be evaluated on post myelography CT. IMPRESSION: Lumbar myelogram, as described. Dictated by: Dictated on workstation # [id number]
== END 2020-04-14 14:20 ==
LOC: RAD 08:07 → SDC 10:37 → RAD 14:20
PROVIDERS: ATTEND Nurse Practitioner
DX: M47.26 Other spondylosis with radiculopathy, lumbar region (principal); M48.061 Spinal stenosis, lumbar region without neurogenic claudication; M48.07 Spinal stenosis, lumbosacral region; M51.16 Intervertebral disc disorders with radiculopathy, lumbar region; G43.909 Migraine, unspecified, not intractable, without status migrainosus; I11.0 Hypertensive heart disease with heart failure; I50.9 Heart failure, unspecified; J44.9 Chronic obstructive pulmonary disease, unspecified; F41.9 Anxiety disorder, unspecified; F32.9 Major depressive disorder, single episode, unspecified; E11.9 Type 2 diabetes mellitus without complications; I20.9 Angina pectoris, unspecified; K57.90 Diverticulosis of intestine, part unspecified, without perforation or abscess without bleeding; Z79.899 Other long term (current) drug therapy; Z88.5 Allergy status to narcotic agent; Z88.2 Allergy status to sulfonamides; Z91.041 Radiographic dye allergy status; Z87.442 Personal history of urinary calculi; Z85.118 Personal history of other malignant neoplasm of bronchus and lung; Z80.1 Family history of malignant neoplasm of trachea, bronchus and lung
CPT/HCPCS: 36415; 62284; 72132; 72265; 77002; 85027; 85610; 85730

== ENCOUNTER 2021-07-02 20:59 | Emergency (ER) | payer MEDICARE, OTHER ==
[~2021-07-02] VITALS: Ht 175.6 cm; Wt 81.6 kg
[~2021-07-02 20:59] MED LIST changes: +DICY20TA PO; -DICY20TA10 PO; +SERT-414 PO; -SERT100T8 PO
[2021-07-02] MEDS ORDERED: hydrALAZINE (APESOLINE) 20 MG/ML VIAL IV ONE (21:30)
--- NOTE | 2021-07-02 21:55 | ED EENT ---
History of Present Illness General Chief Complaint: Nasal Problems Stated Complaint: NOSE BLEED Nursing Triage Note: Patient states that his nose started bleeding at approximately 19:30 tonight. Patient takes plavix and has a history of HTN. Patient states that he gets nosebleeds from time to time but he has not ever had a problem getting them to stop. Source: patient History of Present Illness Date Seen by Provider: Jul 02, 2021 Time Seen by Provider: 21:03 Initial Comments 70-year-old male presenting with complaints of bloody nose since around 730 tonight. He does take Plavix and aspirin for cardiac stents and a pacemaker. He denies any trauma to his nose. He states that he does periodically get nosebleeds and usually he can stop them at home but he was unable to get this 1 to stop. He also has had previous deviated septum surgery in the past. He denies any fevers, chills, sinus pressure, congestion, trauma to his nose. He had tried ice and pressure at home but it was not getting the bleeding stopped. He has packed it with toilet paper but now it was running down the back of his throat. Severity: moderate Location: nose Prearrival Treatment: squeezing nostrils, nasal packing, other (Ice pack) Modifying Factors: Worse With Activity Associated Symptoms: No change in hearing, No cough, No drooling, No ear drainage, No facial pain/swelling, No fever, No malaise, No nasal congestion/drainage, No poor fluid intake, No poor solids intake, No sinus infection, No sore throat, No tooth pain, No voice change Allergies and Home Medications Allergies Coded Allergies: Sulfa (Sulfonamide Antibiotics) (Verified Allergy, Unknown, 12/25/18) acetaminophen (Verified Allergy, Unknown, 12/25/18) hydromorphone (Verified Allergy, Unknown, 12/25/18) morphine (Verified Allergy, Unknown, 12/25/18) propoxyphene (Verified Allergy, Unknown, 12/25/18) Patient Home Medication List Home Medication List Reviewed: Yes Aspirin (Aspirin) 81 Mg Tab.chew, 81 MG PO DAILY, (Reported) Entered as Reported by: WALI RIVAS on 12/25/18 0956 Atorvastatin Calcium (Atorvastatin Calcium) 80 Mg Tablet, 80 MG PO HS, (Reported) Entered as Reported by: CASE SIMS on 08/01/18922 Clopidogrel Bisulfate (Clopidogrel) 75 Mg Tablet, 75 MG PO DAILY, (Reported) Entered as Reported by: CASE SIMS on 08/01/18922 Donepezil HCl (Aricept) 10 Mg Tablet, 10 MG PO HS, (Reported) Entered as Reported by: CASE SIMS on 08/01/18922 Metformin HCl (Metformin HCl ER) 500 Mg Tab.er.24h, 1,000 MG PO DAILY, (Reported) Entered as Reported by: CASE SIMS on 08/01/18922 Ramipril (Ramipril) 10 Mg Capsule, 10 MG PO DAILY, (Reported) Entered as Reported by: CASE SIMS on 08/01/18922 Semaglutide (Ozempic) 1 Mg/0.75 Ml Pen.injctr, 1 MG SQ WEEK, (Reported) Entered as Reported by: CASE SIMS on 08/01/18922 Sertraline HCl (Sertraline HCl) 100 Mg Tablet, 100 MG PO DAILY, (Reported) Entered as Reported by: CASE SIMS on 08/01/18922 Review of Systems Review of Systems Constitutional: No chills, No fever; other (Reports feeling a little lightheaded) Eyes: No Symptoms Reported Ears: No Symptoms Reported Nose: see HPI, clots, epistaxis, bloody discharge; denies purulent discharge Mouth: no symptoms reported Throat: no symptoms reported Respiratory: no symptoms reported Cardiovascular: no symptoms reported Gastrointestinal: no symptoms reported Musculoskeletal: no symptoms reported Skin: no symptoms reported Neurological: No Symptoms Reported Hematologic/Lymphatic: Easy Bleeding, Easy Bruising Past Wfeiedj-Pwmxna-Odecxx Hx Patient Social History Tobacco Use?: No Substance use?: No Alcohol Use?: No Pt feels they are or have been: No Immunizations Up To Date Tetanus Booster (TDap): Unknown COVIDSoicos Vaccine Preparole Counseling Aide: Orthocone Seasonal Allergies Seasonal Allergies: No Past Medical History Surgery/Hospitalization HX: HTN, Plavix Surgeries: Yes (BACK SX, NECK SX, COLOSTOMY THEN REVER,BILAT rcr, BRAIN TUMOR, ) Appendectomy, Coronary Stent, Lobectomy, Pacemaker, Tonsillectomy Respiratory: Yes (HX LUNG CANCER) Sleep Apnea, COPD Currently Using CPAP: Yes Currently Using BIPAP: No Cardiac: Yes ([facility] PACEMAKER/DEFIB, STENTS) Coronary Artery Disease, Heart Attack, Hypertension Neurological: Yes (NEUROMA TUMOR REMOVED, DEMENTIA) Brain Tumor Sexually Transmitted Disease: No HIV/AIDS: No Genitourinary: Yes (HEMATURIA, PROSTATITIS) Gastrointestinal: Yes (COLON RESECTION X7 TOTAL) Gastroesophageal Reflux, Diverticulosis Musculoskeletal: Yes Arthritis, Chronic Back Pain Endocrine: Yes Diabetes, Non-Insulin dep HEENT: Yes (CATARACTS REMOVED, OCULAR IMPLANTS) Hearing Impairment: Hard of Hearing, Deaf Cancer: Yes Lung Did You Recieve Any Treatments: Yes What Type of Treatment Did You: Surgical Intervention Psychosocial: Yes Depression Integumentary: No Blood Disorders: No Adverse Reaction/Blood Tranf: No (N/A) Physical Exam Vital Signs Vital Signs - First Documented 07/02/21 21:02 Temp 37.0 Pulse 94 Resp 16 B/P (MAP) 160/101 (120) Pulse Ox 98 O2 Delivery Room Air Height, Weight, BMI Height: 5'9.00" Weight: 178lbs. 4.0oz. 80.479555zk; 26.00 BMI Method: General Appearance: WD/WN, no apparent distress Eyes: bilateral eye PERRL, bilateral eye EOMI Nose: active bleeding (Right anterior septum) Mouth/Throat: normal mouth inspection, pharynx normal Cardiovascular: normal peripheral pulses, regular rate, rhythm Neurologic/Psychiatric: alert, oriented x 3 Skin: normal color, warm/dry Procedures/Interventions Nasal : Nasal Location: Right Clots Cleared from Nasal: Patient Blowing Inspection with: Otoscope Nasal Procedures: Cauterized w/Silver Nitra Progress Patient had nasal packing of toilet paper removed from home. He had large clots removed from the right nose with direct traction. Then a sterile gauze pad was used to dab the blood clot from the anterior naris. Using direct pressure over his nerves I held pressure for 5 minutes steadily. At the end of this time I was able to look and see he had an area of oozing at the right anterior septum. I applied silver nitrate to get the bleeding to stop. I also had the nurse administer 10 mg of hydralazine to help with elevated blood pressure. Progress/Results/Core Measures Results/Orders My Orders Orders - MILTON BROWER MD Ed Iv/Invasive Line Start (07/02/21 21:21) Hydralazine Injection (Apresoline Inject (07/02/21 21:30) Medications Given in ED Current Medications Medications Dose Ordered Sig/Fiordaliza Route Start Time Stop Time Status Last Admin Dose Admin Hydralazine HCl 10 mg ONCE ONCE IV 07/02/21 21:30 07/02/21 21:32 DC 07/02/21 21:29 10 MG Vital Signs/I&O 07/02/21 21:02 Temp 37.0 Pulse 94 Resp 16 B/P (MAP) 160/101 (120) Pulse Ox 98 O2 Delivery Room Air Blood Pressure Mean: 120 Progress Progress Note : Progress Note Despite holding direct pressure for 5 minutes after clearing clots from his nose I was not able to control his bleeding. Given Silver Nitrate to cauterize area of bleeding to anterior septum on right side. Also given Hydralazine 10 mg IV to help with elevated blood pressure. On recheck after 30 minutes he had improved blood pressure and no further bleeding from his nose. Discharge to home with instructions for follow up and return precautions. Counseled on ways to help prevent and manage nose bleeds at home and keep nares moist to help prevent further bleeding. Departure Impression Primary Impression: Acute anterior epistaxis Additional Impressions: Elevated blood pressure reading with diagnosis of hypertension Anticoagulated Disposition: 01 HOME, SELF-CARE Condition: Improved Departure-Patient Inst. Decision time for Depature: 22:02 Referrals: RACHAEL MOROCHO MD, JOHN M MD (PCP/Family) Primary Care Physician Patient Instructions: Nosebleeds ED, High Blood Pressure ED Add. Discharge Instructions: Use a Q tip to apply a small amount of antibiotic ointment or vaseline to the inside of nose to help keep the lining of your nose moist. When you have dry membranes in your nose it is easier to bleed, especially with elevated blood pressure and taking Plavix and Aspirin. Use a humidifier at bedside for extra humidity when you are sleeping. Check back with ENT if continued issues. All discharge instructions reviewed with patient and/or family. Voiced understanding. MILTON BROWER MD Jul 02, 2021 21:54
[2021-07-02 22:09] VITALS: BP 146/94
== END 2021-07-02 22:09 | disposition home or self-care (01) ==
LOC: EDUNIT# 20:59 → ER FS 21:01
DX: R04.0 Epistaxis (principal); I25.2 Old myocardial infarction; I10 Essential (primary) hypertension; J44.9 Chronic obstructive pulmonary disease, unspecified; G47.30 Sleep apnea, unspecified; I25.10 Atherosclerotic heart disease of native coronary artery without angina pectoris; E11.9 Type 2 diabetes mellitus without complications; F32.9 Major depressive disorder, single episode, unspecified; Z79.84 Long term (current) use of oral hypoglycemic drugs; Z79.01 Long term (current) use of anticoagulants; Z79.82 Long term (current) use of aspirin; Z79.899 Other long term (current) drug therapy

== ENCOUNTER → 2022-02-28 | Outpatient (CLI) | payer OTHER | LOC: CARDFS 11:35 | PROVIDERS: ATTEND Internal Medicine Cardiovascular Disease | DX: I25.10 Atherosclerotic heart disease of native coronary artery without angina pectoris (principal); I35.0 Nonrheumatic aortic (valve) stenosis; I51.7 Cardiomegaly | CPT/HCPCS: 93306 ==

== ENCOUNTER → 2022-03-03 | Outpatient (CLI) | payer OTHER ==
[~2022-03-03] VITALS: Ht 175 cm; Wt 81.0 kg
[~2022-03-03] MED LIST changes: +CATHETER FLUSH 10 ML SYR IVP PRN; +REGADENOSON 0.4 MG/5 ML SYR (LEXISCAN) IV ONE
[2022-03-03 08:46] VITALS: BP 181/108
--- NOTE | 2022-03-03 12:13 | STRESS TEST ---
DATE OF SERVICE: 03/03/2022 RESTING AND POST REGADENOSON TECHNETIUM-99M TETROFOSMIN SPECT CT IMAGING ORDERING PHYSICIAN: Dr. Zimmerman. PRIMARY PHYSICIAN: Dr. Jeffers. CLINICAL DIAGNOSIS: Coronary artery disease. Baseline images were carried out after injection of 10.74 mCi of technetium-99m Tetrofosmin. This was followed by 0.4 mg Regadenoson and 30.5 mCi of technetium-99m Tetrofosmin for stress imaging. The electrocardiogram showed paced atrial and ventricular rhythm. The electrocardiogram did not change significantly with the regadenoson infusion. The patient noted some nausea following regadenoson infusion, which resolved in a few minutes. Overall, he tolerated the procedure well. Review of images at rest and following stress indicates diminished count uptake in the diaphragmatic wall of the left ventricle, both at rest and following regadenoson infusion. Gated images show normal global left ventricular systolic function with normal regional wall motion, including the diaphragmatic wall of the left ventricle. Thus, there does not appear to be any distinct evidence of myocardial ischemia or infarction. Left ventricular ejection fraction is calculated to be 40%, but subjectively appears to be higher than that. CONCLUSIONS: 1. No evidence of significant myocardial ischemia or infarction on this study. 2. Well preserved global left ventricular systolic function. 3. Ejection fraction is calculated to be 40%, but appears to be subjectively to be higher than that. 3. No significant regional wall motion abnormality. 4. Mild cardiomegaly. Job ID: [id number] DocumentID: [id number] Dictated Date: 03/03/2022 12:03:58 Equipment Service Associate Date: 03/03/2022 12:12:36 Dictated By: JACK ZIMMERMAN MD, MA, FACP, FACC,
== END ==
LOC: CARD 08:15
PROVIDERS: ATTEND Internal Medicine Cardiovascular Disease
DX: I25.10 Atherosclerotic heart disease of native coronary artery without angina pectoris (principal)
CPT/HCPCS: 78452; 93017; A9502

== ENCOUNTER 2022-05-09 07:23 | Day surgery (SDC) | payer MEDICARE ==
[2022-05-09] VITALS (9 sets, daily range): BP systolic 145–180; BP diastolic 92–121
[~2022-05-09] VITALS: Ht 175.3 cm; Wt 80.5 kg
[~2022-05-09 07:23] MED LIST changes: -CATHETER FLUSH 10 ML SYR IVP PRN; -REGADENOSON 0.4 MG/5 ML SYR (LEXISCAN) IV ONE
[2022-05-09] MEDS ORDERED: NS IV 1000 ML 2,000 ML ONE (07:28)
[2022-05-09] MEDS ORDERED: HEParin (CATH LAB) 1,000 ML IV ONE (07:28)
[2022-05-09] MEDS ORDERED: LIDOCAINE 1% INJ 30 ML (XYLOCAINE) VIAL ONE (07:28)
[2022-05-09] MEDS ORDERED: NS IV 1000 ML 1,000 ML IV ONE (07:30)
[2022-05-09] MEDS ORDERED: ceFAZolin INJECTION 1,000 MG VIAL IV ONE (07:30)
[2022-05-09] MEDS ORDERED: fentaNYL INJ 100 MCG/2 ML AMP ONE ×2 (07:44→09:08)
[2022-05-09] MEDS ORDERED: MIDAZOLAM 5 MG/5 ML (VERSED) VIAL ONE (07:45)
[2022-05-09 07:56] LABS: HEMATOCRIT 47 % (40-54); HEMOGLOBIN 15.9 g/dL (13.3-17.7); MEAN CORPUSCULAR HEMOGLOBIN 30 pg (25-34); MEAN CORPUSCULAR HGB CONC 34 g/dL (32-36); MEAN CORPUSCULAR VOLUME 89 fL (80-99); MEAN PLATELET VOLUME 8.7 fL (9.0-12.2); PLATELET COUNT 168 10^3/uL (130-400); WHITE BLOOD COUNT 9.1 10^3/uL (4.3-11.0)
[2022-05-09] MEDS ORDERED: ASPI-1238 PO (08:02)
[2022-05-09] MEDS ORDERED: ALLO300T2 PO (08:02)
[2022-05-09] MEDS ORDERED: DONE10TA41 PO (08:02)
[2022-05-09] MEDS ORDERED: DULO60CA59 PO (08:02)
[2022-05-09 08:13] LABS: ALBUMIN 4.4 GM/DL (3.2-4.5); POTASSIUM 3.6 MMOL/L (3.6-5.0)
[2022-05-09 08:14] LABS: CALCIUM 9.4 MG/DL (8.5-10.1)
[2022-05-09 08:15] LABS: TOTAL PROTEIN 7.9 GM/DL (6.4-8.2)
[2022-05-09 08:16] LABS: INR 0.9 (0.8-1.4); PROTHROMBIN TIME PATIENT 12.5 SEC (12.2-14.7)
[2022-05-09 08:17] LABS: BILIRUBIN,TOTAL 0.9 MG/DL (0.1-1.0)
[2022-05-09 08:19] LABS: CREATININE SERUM 1.76 MG/DL (0.60-1.30)
[2022-05-09] MEDS ORDERED: ceFAZolin INJECTION 1,000 MG ONE (08:33)
[2022-05-09] MEDS ORDERED: MIDAZOLAM 2 MG/2 ML (VERSED) VIAL ONE (09:09)
[2022-05-09] MEDS ORDERED: PATIENT MAY USE OWN MEDS, ALL PO SCH (10:30)
[2022-05-09] MEDS ORDERED: NS IV 1000 ML 1,000 ML IV SCH (10:30)
[2022-05-09] MEDS ORDERED: CEFU500T63 PO (10:37)
--- NOTE | 2022-05-09 10:38 | Discharge Inst-Post Device ---
Discharge Inst-Post Device Follow up/Plan F/u at Dr Zimmerman's on 05/12/22 for wound check F/u with Dr Zimmerman in 6 weeks Heart Healthy Diet Do not lift arm on side of device placement above head for 4 weeks. Do not push and pull heavy objects for 4 weeks. Activity as tolerated. No driving for one week. Leave dressing on until follow up at the office. JACK ZIMMERMAN MD FACP FAC CCDS May 09, 2022 10:38
--- NOTE | 2022-05-09 10:41 | Cardiac Procedure Note-CS/ASA ---
Pre-Procedure Note Pre-Op Procedure Note Date of Available H&P: May 08, 2022 Date H&P Reviewed: May 09, 2022 Time H&P Reviewed: 08:45 History & Physical: H&P Reviewed, No changes noted Conscious Sedation Pre-Proced Time 08:45 ASA Score 3 For ASA 3 and 4: Consider anesthesia and medical clearance. Also, for patients with a history of failed moderate sedation consider anesthesia. Airway Lungs Heart ASA score ASA 1: a normal healthy patient ASA 2: a patient with a mild systemic disease (mid diabetes, controlled hypertension, obesity ASA 3: a patient with a severe systemic disease that limits activity (angina, COPD, prior Myocardial infarction) ASA 4: a patient with an incapacitating disease that is a constant threat to life (CHF, renal failure) ASA 5: a moribund patient not expected to survive 24 hrs. (ruptured aneurysm) ASA 6: a declared brain- patient whose organs are being harvested. For emergent operations, add the letter E after the classification Mallampati Classification Grade 2 Sedation Plan Analgesia, Amnesia, Plan communicated to team members, Discussed options with p shy/fam The patient is an appropriate candidate to undergo the planned procedure, sedation, and anesthesia. The patient immediately re-assessed prior to indication. JACK DWYER MD FACP FAC CCDS May 09, 2022 10:41
--- NOTE | 2022-05-09 20:22 | OPERATIVE REPORT ---
DATE OF SERVICE: 05/09/2022 PREOPERATIVE DIAGNOSIS: Biventricular pacemaker defibrillator at elective replacement indicator. POSTOPERATIVE DIAGNOSIS: Biventricular pacemaker defibrillator at elective replacement indicator. PROCEDURE: Pulse generator change. ESTIMATED BLOOD LOSS: Less than 10 mL INDICATIONS: The patient is a 71-year-old man who has a biventricular pacemaker defibrillator in place that has previously been replaced once. The second device has now reached elective replacement indicator. Informed consent was obtained for pulse generator change. DESCRIPTION OF PROCEDURE: He was brought to the cardiac catheterization laboratory in a fasting state. The left prepectoral area was prepared and draped in the usual sterile fashion. A 1% lidocaine with local anesthesia. Sharp and blunt dissection was used to open the device pocket and the device was removed from the pocket. Careful dissection was carried out. The device was removed from the leads. The leads were attached to new device, which is [employer] with serial number [id number] and the model number is [id number]. The pocket was thoroughly irrigated with normal saline. Good hemostasis was assured. The new device and the leads were placed in the previous pocket and the pocket was closed in 2 layers using 3.0 Vicryl. The patient tolerated the procedure well. The device is functioning normally. All lead parameters remained unchanged following device placement. Job ID: [id number] DocumentID: [id number] Dictated Date: 05/09/2022 10:12:47 Rotary Dryer Operator Date: 05/09/2022 20:20:00 Dictated By: JACK DWYER MD; KANDACE; FACP; FACC;
== END 2022-05-09 13:30 | disposition home or self-care (01) ==
LOC: CATH 07:23 → SDC 10:42 → CATH 13:30
PROVIDERS: ATTEND Internal Medicine Cardiovascular Disease
DX: Z45.02 Encounter for adjustment and management of automatic implantable cardiac defibrillator (principal)
CPT/HCPCS: 33262; 33264; 80053; 80061; 85027; 85610; 85730; 87081; 93005; C1882; 36415